=== PATIENT | male | born 1945 | race Caucasian/White ===

== ENCOUNTER 2021-06-14 15:22 | Inpatient (IN) | payer OTHER, MEDICARE ==
[~2021-06-14] VITALS: Ht 170.2 cm; Wt 104.3 kg
[2021-06-14 15:59] LABS: HEMOGLOBIN 14.5 gm/dl (14.0-17.5); RED BLOOD COUNT 4.72 M/UL (4.20-5.50); WHITE BLOOD COUNT 7.1 K/UL (4.5-11.0)
[2021-06-15 04:58] LABS: HEMOGLOBIN 13.1 gm/dl (14.0-17.5); RED BLOOD COUNT 4.32 M/UL (4.20-5.50)
[2021-06-15 05:00] LABS: WHITE BLOOD COUNT 5.1 K/UL (4.5-11.0)
[2021-06-15 05:37] LABS: BUN/CREATININE RATIO 25 (0-10)
[2021-06-15] MEDS ORDERED: CITALOPRAM HBR10 MG PO (10:07)
[2021-06-15] MEDS ORDERED: HUMALOG100 UNIT/1 SQ (10:08)
[2021-06-15] MEDS ORDERED: LANTUS100 UNIT/1 SQ (10:08)
[2021-06-15] MEDS ORDERED: LEVOTHYROXINE50 MCG PO (10:08)
[2021-06-15] MEDS ORDERED: METOCLOPRAMIDE10 MG PO (10:09)
[2021-06-15] MEDS ORDERED: SIMVASTATIN10 MG PO (10:09)
[2021-06-15] MEDS ORDERED: METFORMIN HCL1000 MG PO (10:09)
[2021-06-15] MEDS ORDERED: IBU800 MG PO (10:10)
[2021-06-15] MEDS ORDERED: WELLBUTRIN XL300 M1 PO (11:06)
[2021-06-15] MEDS ORDERED: AMLODIPINE BESYL5 MG PO (11:06)
[2021-06-15] MEDS ORDERED: OLANZAPINE5 MG PO (11:06)
[2021-06-15] MEDS ORDERED: PROTONIX 40 MG40 M1 PO (11:07)
[2021-06-15] MEDS ORDERED: FLOMAX 0.4 MG0.4 MG PO (11:07)
[2021-06-15] MEDS ORDERED: FEXOFENADINE H180 MG PO (11:07)
[2021-06-15] MEDS ORDERED: ZOCOR40 MG PO (11:07)
[2021-06-15] MEDS ORDERED: ASPIRIN EC81 MG PO (11:08)
[2021-06-16 04:36] LABS: HEMOGLOBIN 12.5 gm/dl (14.0-17.5); RED BLOOD COUNT 4.13 M/UL (4.20-5.50); WHITE BLOOD COUNT 5.3 K/UL (4.5-11.0)
[2021-06-16 04:55] LABS: BUN/CREATININE RATIO 26 (0-10)
[2021-06-17 05:05] LABS: BUN/CREATININE RATIO 22 (0-10)
[2021-06-18 03:53] LABS: BUN/CREATININE RATIO 21 (0-10)
[2021-06-19 07:06] LABS: BUN/CREATININE RATIO 25 (0-10)
--- NOTE | 2021-06-19 09:10 | NUR ---
PATIENT'S O2 DROPPED TO 85% ON 5 L HAD TO PUT PT ON HIGH LINDA AT 7L TO MAINTAIN 90% O2 SAT
[2021-06-22 04:07] LABS: BUN/CREATININE RATIO 25 (0-10)
--- NOTE | 2021-06-22 12:00 | NUR ---
DR. BELLE ORDERD AN ABG AND DECIDED THAT THE PATIENT SHOULD BE SWITCHED TO AIRVO AND DC HIFLO. RESPIRATORY CONTACTED TO SET UP AIRVO PER MD ORDER. WILL CONTINUE TO MONITOR PATIENT.
--- NOTE | 2021-06-22 16:34 | NUR ---
PATIENT COMPLAINING OF SORE MOUTH AND CONGESTED NOSTRILS. NOTIFIED DR BELLE AND SHE ORDERED PRN SALINE NOSE SPRAY AND MAGIC MOUTHWASH. WAITING ON PHARMACY TO VERIFY TO GIVE MEDICATION TO PATIENT. WILL CONTINUE TO MONITOR.
[2021-06-25 14:26] LABS: HEMOGLOBIN 13.1 gm/dl (14.0-17.5); RED BLOOD COUNT 4.28 M/UL (4.20-5.50)
[2021-06-25 14:50] LABS: BUN/CREATININE RATIO 29 (0-10)
--- NOTE | 2021-06-25 17:27 | NUR ---
RN SPOKE WITH EVENING OR NIGHT NURSE SUPERVISOR ABOUT PATIENT AND NOTIFIED HIM OF PATIENT'S NEED FOR INCREASED OXYGEN OVER THE LAST FEW DAYS. MD ORDERED RN TO TRANSFER PATIENT TO PCU FOR CLOSER MONITORING. RN NOTIFIED PATIENT AND TILER'S ASSISTANT. RN AND RESPIRATORY STAFF TRANSPORTED PATIENT TO [facility] AFTER REPORT VIA TELEPHONE WAS GIVEN. CALL LIGHT WITHIN REACH. BED LOCKED AND LOW. RN NOTIFIED RECEIVING NURSE OF PATIENT ARRIVAL.
[2021-06-26 12:38] LABS: HEMOGLOBIN 12.9 gm/dl (14.0-17.5); RED BLOOD COUNT 4.16 M/UL (4.20-5.50); WHITE BLOOD COUNT 8.6 K/UL (4.5-11.0)
[2021-06-27] MEDS ORDERED: IPRAT-ALBUT 0.5-3 ML NEB (13:08)
[2021-06-27] MEDS ORDERED: ELIQUIS5 M1 PO (13:08)
[2021-06-28 05:04] LABS: BUN/CREATININE RATIO 23 (0-10)
[2021-06-30 04:13] LABS: BUN/CREATININE RATIO 31 (0-10)
[2021-07-01 02:51] LABS: HEMOGLOBIN 14.4 gm/dl (14.0-17.5); RED BLOOD COUNT 4.7 M/UL (4.20-5.50); WHITE BLOOD COUNT 12.9 K/UL (4.5-11.0)
[2021-07-01 03:26] LABS: BUN/CREATININE RATIO 33 (0-10)
[2021-07-02 04:28] LABS: HEMOGLOBIN 13.1 gm/dl (14.0-17.5); RED BLOOD COUNT 4.36 M/UL (4.20-5.50); WHITE BLOOD COUNT 10.3 K/UL (4.5-11.0)
[2021-07-02 05:13] LABS: BUN/CREATININE RATIO 29 (0-10)
[2021-07-02 11:16] LABS: HBSAG SCREEN Negative (Negative); HEP A AB, IGM Negative (Negative); HEP B CORE AB, IGM Negative (Negative); HEP C VIRUS AB <0.1 (0.0-0.9)
[2021-07-03 04:01] LABS: HEMOGLOBIN 12.6 gm/dl (14.0-17.5); RED BLOOD COUNT 4.26 M/UL (4.20-5.50); WHITE BLOOD COUNT 8.6 K/UL (4.5-11.0)
[2021-07-03 04:20] LABS: BUN/CREATININE RATIO 26 (0-10)
[2021-07-04 02:51] LABS: HEMOGLOBIN 12.3 gm/dl (14.0-17.5); RED BLOOD COUNT 4.06 M/UL (4.20-5.50); WHITE BLOOD COUNT 7.3 K/UL (4.5-11.0)
[2021-07-04 03:20] LABS: BUN/CREATININE RATIO 31 (0-10)
[2021-07-05 02:42] LABS: HEMOGLOBIN 12.1 gm/dl (14.0-17.5); RED BLOOD COUNT 4.04 M/UL (4.20-5.50)
[2021-07-05 03:09] LABS: BUN/CREATININE RATIO 31 (0-10)
[2021-07-06 02:53] LABS: HEMOGLOBIN 12.2 gm/dl (14.0-17.5); RED BLOOD COUNT 4.01 M/UL (4.20-5.50); WHITE BLOOD COUNT 7.4 K/UL (4.5-11.0)
[2021-07-06 03:07] LABS: BUN/CREATININE RATIO 29 (0-10)
[2021-07-07 03:38] LABS: BUN/CREATININE RATIO 21 (0-10)
[2021-07-07 05:01] LABS: HEMOGLOBIN 12.2 gm/dl (14.0-17.5); RED BLOOD COUNT 3.94 M/UL (4.20-5.50); WHITE BLOOD COUNT 9.3 K/UL (4.5-11.0)
[2021-07-08 03:26] LABS: HEMOGLOBIN 11.2 gm/dl (14.0-17.5); RED BLOOD COUNT 3.72 M/UL (4.20-5.50)
[2021-07-08 03:35] LABS: BUN/CREATININE RATIO 22 (0-10)
[2021-07-08 03:43] LABS: WHITE BLOOD COUNT 5.5 K/UL (4.5-11.0)
[2021-07-08] MEDS ORDERED: GABAPENTIN100 MG PO (09:17)
[2021-07-08] MEDS ORDERED: POLYETHYLENE GL17 GM PO (09:17)
[2021-07-08] MEDS ORDERED: FLUCONAZOLE50 MG PO (09:17)
[2021-07-08] MEDS ORDERED: SUCRALFATE1 GM/10 ML PO (09:17)
[2021-07-08] MEDS ORDERED: ELIQUIS 5 MG TAB5 MG PO (09:17)
[2021-07-08] MEDS ORDERED: MEDROL DOSEPAK 24 MG PO (09:17)
[2021-07-08] MEDS ORDERED: MYCOSTATIN100000 UTS PO (10:06)
[2021-07-08] MEDS ORDERED: MAGIC MOUTHWASH PO (10:06)
--- NOTE | 2021-07-08 13:12 | NUR ---
PER RN ON THE FLOOR, PT ROOM AIR SAT 82%
--- NOTE | 2021-07-08 15:40 | NUR ---
CALLED REPORT TO JHONATHAN AT [facility]. OXYGEN DELIVERED TO HOSPITAL ROOM BY [facility]. NOTIFIED OF PT DISCHARGE.
== END 2021-07-08 16:40 | disposition home health service (06) | DRG 177 ==
LOC: ER1 15:22 → PROG CARE 18:51 → MED SURG 4 18:51 → CDU 18:51 → MED SURG 4 06-15 08:00 → PROG CARE 06-25 15:30
PROVIDERS: Emergency Medicine; Internal Medicine; Internal Medicine Critical Care Medicine; Internal Medicine Gastroenterology; ADMIT Internal Medicine
PROC: XW033E5 Introduction of Remdesivir Anti-infective into Peripheral Vein, Percutaneous Approach, New Technology Group 5 (ICD-10-PCS; 2021-06-14)
PROC: 3E0333Z Introduction of Anti-inflammatory into Peripheral Vein, Percutaneous Approach (ICD-10-PCS; 2021-06-14)
PROC: 5A0955A Assistance with Respiratory Ventilation, Greater than 96 Consecutive Hours, High Flow/Velocity Cannula (ICD-10-PCS; 2021-06-19)
PROC: 5A09357 Assistance with Respiratory Ventilation, Less than 24 Consecutive Hours, Continuous Positive Airway Pressure (ICD-10-PCS; 2021-06-25)
PROC: 5A0935A Assistance with Respiratory Ventilation, Less than 24 Consecutive Hours, High Flow/Velocity Cannula (ICD-10-PCS; 2021-06-25)
PROC: 8E0ZXY6 Isolation (ICD-10-PCS; principal; 2021-06-26)
PROC: 5A09357 Assistance with Respiratory Ventilation, Less than 24 Consecutive Hours, Continuous Positive Airway Pressure (ICD-10-PCS; 2021-06-26)
PROC: 5A0955A Assistance with Respiratory Ventilation, Greater than 96 Consecutive Hours, High Flow/Velocity Cannula (ICD-10-PCS; 2021-06-26)
PROC: 5A0935A Assistance with Respiratory Ventilation, Less than 24 Consecutive Hours, High Flow/Velocity Cannula (ICD-10-PCS; 2021-06-26)
PROC: 0DB58ZX Excision of Esophagus, Via Natural or Artificial Opening Endoscopic, Diagnostic (ICD-10-PCS; 2021-07-06)
DX: U07.1 COVID-19 (principal); J12.82 Pneumonia due to coronavirus disease 2019; J96.01 Acute respiratory failure with hypoxia; K22.11 Ulcer of esophagus with bleeding; J15.9 Unspecified bacterial pneumonia; M62.82 Rhabdomyolysis; N17.9 Acute kidney failure, unspecified; B37.0 Candidal stomatitis; I82.453 Acute embolism and thrombosis of peroneal vein, bilateral; I48.91 Unspecified atrial fibrillation; E78.5 Hyperlipidemia, unspecified; I10 Essential (primary) hypertension; N40.0 Benign prostatic hyperplasia without lower urinary tract symptoms; R13.10 Dysphagia, unspecified; F32.A Depression, unspecified; T38.0X5A Adverse effect of glucocorticoids and synthetic analogues, initial encounter; Z90.49 Acquired absence of other specified parts of digestive tract; Z88.1 Allergy status to other antibiotic agents; Z88.0 Allergy status to penicillin; Z87.891 Personal history of nicotine dependence; Z79.82 Long term (current) use of aspirin
CPT/HCPCS: 36415; 36600; 71045; 71275; 74230; 76705; 80048; 80053; 80074; 81001; 82550; 82553; 82728; 82803; 83036; 83690; 83735; 83874; 83880; 84100; 84439; 84443; 84484; 85025; 85027; 85379; 85610; 86140; 87040; 92526; 92610; 92611-GN; 93005; 93970; 94640; 94660; 94664; 94760; 96374; 96375; 97110; 97116-GP-CQ; 97161; 97164; 97166; 97168; 97530-GP-CQ; 99285; J0248; J0456; J1100; J1650; J2250; J2270; J2405; J3010; J7030; J7040; J7120; Q9967; U0002

== ENCOUNTER → 2021-08-20 | Outpatient (CLI) | payer MEDICARE, OTHER ==
[~2021-08-20] MED LIST: AMLODIPINE BESYL5 MG PO; ASPIRIN EC81 MG PO; CITALOPRAM HBR10 MG PO; ELIQUIS 5 MG TAB5 MG PO; ELIQUIS5 M1 PO; FEXOFENADINE H180 MG PO; FLOMAX 0.4 MG0.4 MG PO; FLUCONAZOLE50 MG PO; GABAPENTIN100 MG PO; HUMALOG100 UNIT/1 SQ; IBU800 MG PO; IPRAT-ALBUT 0.5-3 ML NEB; LANTUS100 UNIT/1 SQ; LEVOTHYROXINE50 MCG PO; MAGIC MOUTHWASH PO; MEDROL DOSEPAK 24 MG PO; METFORMIN HCL1000 MG PO; METOCLOPRAMIDE10 MG PO; MYCOSTATIN100000 UTS PO; OLANZAPINE5 MG PO; POLYETHYLENE GL17 GM PO; PROTONIX 40 MG40 M1 PO; SIMVASTATIN10 MG PO; SUCRALFATE1 GM/10 ML PO; WELLBUTRIN XL300 M1 PO; ZOCOR40 MG PO
== END ==
LOC: HEART 5 10:51
DX: R09.02 Hypoxemia (principal); R06.02 Shortness of breath
CPT/HCPCS: 94010

== ENCOUNTER 2021-11-20 20:39 | Inpatient (IN) | payer MEDICARE, OTHER ==
[~2021-11-20] VITALS: Ht 170.2 cm; Wt 86.3 kg
[2021-11-20 21:39] LABS: HEMOGLOBIN 15.4 gm/dl (14.0-17.5); RED BLOOD COUNT 4.94 M/UL (4.20-5.50); WHITE BLOOD COUNT 7.3 K/UL (4.5-11.0)
[2021-11-20 22:06] LABS: BUN/CREATININE RATIO 14 (0-10)
[2021-11-21 04:37] LABS: HEMOGLOBIN 14.5 gm/dl (14.0-17.5); RED BLOOD COUNT 4.76 M/UL (4.20-5.50); WHITE BLOOD COUNT 7.1 K/UL (4.5-11.0)
[2021-11-21 05:30] LABS: BUN/CREATININE RATIO 14 (0-10)
--- NOTE | 2021-11-21 09:33 | NUR ---
SPOKE WITH PATIENT ACCESS AT [facility]. GAVE PATIENT UPDATE AND STILL WAITING ON AVAILABLE BED.
[2021-11-21] MEDS ORDERED: MECLIZINE HCL25 MG PO (09:54)
--- NOTE | 2021-11-21 17:53 | NUR ---
REPORT CALLED TO [facility]. REPORT GIVEN TO YONATAN PALM.
--- NOTE | 2021-11-21 18:15 | NUR ---
EMS CALLED TO TRANSPORT PATIENT. FACESHEET AND MEDICAL NECESSITY FORM FAXED TO [facility].
[2021-11-21] MEDS ORDERED: ATORVASTATIN CA20 MG PO (18:22)
== END 2021-11-21 22:30 | disposition short-term general hospital (02) | DRG 69 ==
LOC: ER1 20:39 → CDU 11-21 00:31 → M/S 11-21 02:16
PROVIDERS: Student in an Organized Health Care Education/Training Program; ADMIT Internal Medicine
PROC: B24BZZZ Ultrasonography of Heart with Aorta (ICD-10-PCS; principal; 2021-11-21)
DX: G45.9 Transient cerebral ischemic attack, unspecified (principal); E11.9 Type 2 diabetes mellitus without complications; R47.81 Slurred speech; I10 Essential (primary) hypertension; K21.9 Gastro-esophageal reflux disease without esophagitis; I48.91 Unspecified atrial fibrillation; R13.10 Dysphagia, unspecified; G62.9 Polyneuropathy, unspecified; F41.9 Anxiety disorder, unspecified; E78.5 Hyperlipidemia, unspecified; N40.0 Benign prostatic hyperplasia without lower urinary tract symptoms; Z98.890 Other specified postprocedural states; Z88.0 Allergy status to penicillin; Z79.899 Other long term (current) drug therapy; Z79.82 Long term (current) use of aspirin; Z86.718 Personal history of other venous thrombosis and embolism; Z79.01 Long term (current) use of anticoagulants
CPT/HCPCS: ECHO; 0240U; 36415; 70450; 70496; 70498; 71045; 80053; 82550; 82553; 83735; 84439; 84443; 84484; 85025; 85610; 85730; 93005; 93306; 96360; 99285; Q9967